=== PATIENT | female | born 1995 | race Caucasian/White ===

== ENCOUNTER 2021-08-11 09:26 | Emergency (ER) | payer SELFPAY ==
[2021-08-11] MEDS ORDERED: Acetaminophen 500 MG TAB ONE (09:58)
[2021-08-11] MEDS ORDERED: Sodium Chloride 0.9% 1,000 ML ONE (09:58)
[2021-08-11 10:08] LABS: Hemoglobin 12.6 g/dL (12.0-16.0); Mean Corpuscular HGB CONC 32.1 g/dL (32.0-36.0); Mean Corpuscular Hemoglobin 26.9 pg (27.0-31.0); Mean Corpuscular Volume 83.6 fL (78.0-98.0); Mean Platelet Volume 7.7 fL (7.4-10.4); Platelet Count 227 thou/uL (130-400); RBC Distribution Width 12.7 % (11.5-14.5); Red Blood Cell (RBC) Count 4.69 mill/uL (4.20-5.40); White Blood Cell (WBC) Count 20.9 thou/uL (4.8-10.8)
[2021-08-11] MEDS ORDERED: Ketorolac Tromethamine 30 MG/ML VIAL ONE (10:13)
[2021-08-11 10:21] LABS: ALT (SGPT) 18 U/L (8-55); AST (SGOT) 15 U/L (5-34); Albumin 4.1 g/dL (3.5-5.0); Alkaline Phosphatase 81 U/L (40-110); Anion Gap 15 mmol/L (10-20); BUN (Urea Nitrogen) 7 mg/dL (7.0-18.7); Bilirubin, Total 1.2 mg/dL (0.2-1.2); Calc. Creatinine Clearance 0 mL/min (70-130); Carbon Dioxide 21 mmol/L (22-29); Chloride 101 mmol/L (98-107); Globulin 3.3 g/dL (2.4-3.5); Glucose 123 mg/dL (70-105); Potassium 3.2 mmol/L (3.5-5.1); Protein, Total 7.4 g/dL (6.0-8.3); Sodium 134 mmol/L (136-145)
[2021-08-11 10:35] LABS: Band 3 % (5-11); Lymphocytes 6 % (21-51); MDiff Complete? YES; Manual Diff?? YES; Neutrophil 87 % (42-75)
[2021-08-11 10:36] LABS: Monocytes 4 % (0-10); Platelet Morphology Comment Appears Adequate; RBC Morphology Normal
[2021-08-11 10:46] LABS: Bilirubin Small (Negative); Blood, Urine Large (Negative); Clarity Slightly Cloudy (Clear); Glucose, Urine (Dipstick) Negative (Negative); Ketone, Urine Negative (Negative); Leukocyte Small (Negative); Nitrite Negative (Negative); Protein, Urine (Dipstick) 30 mg/dL (Neg-Trace); pH, Urine 5.5 (5.0-9.0)
[2021-08-11 10:48] LABS: Pregnancy Test - Urine (BHCG) Negative (Negative); Pregu Control Background? CLEAR/WHITE (CLR/WHITE); Pregu Control Bar Appear? YES (CONTROL BAR)
[2021-08-11 10:55] LABS: RBC/HPF Greater than 50 HPF (0-3)
[2021-08-11 10:56] LABS: Bacteria/HPF 1+ HPF (None Seen)
[2021-08-11] MEDS ORDERED: Sodium Chloride 0.9% 250 ML 250 ML ONE (11:23)
[2021-08-11] MEDS ORDERED: Azithromycin 500 MG VIAL ONE (11:23)
[2021-08-11] MEDS ORDERED: cefTRIAXone\\ROCEPHIN 2 GM VIAL ONE (11:23)
[2021-08-11] MEDS ORDERED: Sodium Chloride 0.9% 100 ML ONE (11:23)
[2021-08-11 11:28] LABS: SARS-CoV-2 NAA Rapid Test Not Detected (NotDetected)
== END 2021-08-11 12:42 | disposition critical access hospital (66) ==
LOC: NAV ERS 09:26
DX: J18.9 Pneumonia, unspecified organism (principal); J45.909 Unspecified asthma, uncomplicated; Z20.822 Contact with and (suspected) exposure to COVID-19
CPT/HCPCS: 71046; 80053; 81003; 81015; 81025; 83605; 84484; 85025; 87040; 93005; 94640; 96365; 96366; 96368; 96375; J0456; J0696; J1885; J3490; J7050; J7620

== ENCOUNTER 2021-08-11 12:00 | Inpatient (IN) | payer SELFPAY ==
[~2021-08-11 12:00] MED LIST: Ondansetron ODT 4 MG TAB SL PRN; Ondansetron PF 4 MG/2 ML Vial IVP PRN
[2021-08-11] MEDS ORDERED: Azithromycin 500 MG in Sodium Chloride 0.9% 250 ML 250 ML IVPB SCH (13:30)
[2021-08-11] MEDS: NS 0.9% w/ 20 MEQ KCL 1,000 ML IV SCH ×2 (14:44→21:19)
[2021-08-11 15:10] VITALS: BMI 39.4
[2021-08-11] MEDS: Acetaminophen 325 MG TAB PO PRN ×2 (17:20→21:19)
[2021-08-11] MEDS: Benzonatate 100 MG CAP PO PRN (17:52)
[2021-08-11] MEDS ORDERED: Acetaminophen 650 MG Suppository PR PRN (20:47)
[2021-08-11] MEDS ORDERED: Senokot S 8.6-50 MG TAB PO PRN (20:47)
[2021-08-11] MEDS ORDERED: Loperamide HCl 2 MG CAP PO PRN ×2 (20:47)
[2021-08-11] MEDS ORDERED: Calcium Carbonate 500 MG ChewTAB PO PRN (20:47)
[2021-08-11] MEDS ORDERED: Cepastat Lozenges 1 LOZ PO PRN (20:47)
[2021-08-11] MEDS ORDERED: Sodium Chloride 0.65% Nasal 44 ML BOT EA NARE PRN (20:47)
[2021-08-11] MEDS ORDERED: Promethazine HCl 25 MG SUPP PR PRN (20:47)
[2021-08-11] MEDS ORDERED: cefTRIAXone\\ROCEPHIN 1 GM in Sodium Chloride 0.9% 100 ML IVPB SCH (21:00)
[2021-08-12 06:32] LABS: ALT (SGPT) 22 U/L (8-55); AST (SGOT) 17 U/L (5-34); Albumin 3.5 g/dL (3.5-5.0); Alkaline Phosphatase 73 U/L (40-110); Anion Gap 13 mmol/L (10-20); BUN (Urea Nitrogen) 6 mg/dL (7.0-18.7); Bilirubin, Total 0.5 mg/dL (0.2-1.2); Calc. Creatinine Clearance 189 mL/min (70-130); Calcium 8.5 mg/dL (7.8-10.44); Chloride 109 mmol/L (98-107); Globulin 2.9 g/dL (2.4-3.5); Glucose 105 mg/dL (70-105); Potassium 3.8 mmol/L (3.5-5.1); Protein, Total 6.4 g/dL (6.0-8.3)
[2021-08-12 06:37] LABS: %Basophils 0.3 % (0.0-1.0); %Eosinophils 0.4 % (0.0-10.0); %Lymphocytes 15.1 % (21.0-51.0); %Monocytes 5.2 % (0.0-10.0); Hemoglobin 11.3 g/dL (12.0-16.0); Manual Diff?? NO; Mean Corpuscular HGB CONC 31.2 g/dL (32.0-36.0); Mean Corpuscular Hemoglobin 26.5 pg (27.0-31.0); Mean Corpuscular Volume 84.9 fL (78.0-98.0); Mean Platelet Volume 7.7 fL (7.4-10.4); Platelet Count 190 thou/uL (130-400); RBC Distribution Width 13.2 % (11.5-14.5); Red Blood Cell (RBC) Count 4.26 mill/uL (4.20-5.40); White Blood Cell (WBC) Count 10.8 thou/uL (4.8-10.8)
[2021-08-12 06:38] LABS: #Lymphocytes 1.6 thou/uL (1.20-3.40); #Monocytes 0.6 thou/uL (0.11-0.59); #Neutrophils 8.5 thou/uL (1.40-6.50)
[2021-08-12 06:43] LABS: Sodium 138 mmol/L (136-145)
[2021-08-12 06:44] LABS: Carbon Dioxide 20 mmol/L (22-29)
[2021-08-12] MEDS ORDERED: Acetaminophen 325 MG TAB PO PRN (07:48)
[2021-08-12] MEDS: Benzonatate 100 MG CAP PO PRN ×2 (08:21→13:53)
[2021-08-12 09:18] VITALS: TEMP 98.3
[2021-08-12 11:52] VITALS: BP 126/83
== END 2021-08-12 14:28 | disposition home or self-care (01) | DRG 871 ==
LOC: UNDOADMIN 12:48 → NAV ACUTE 12:48
PROVIDERS: ADMIT Family Medicine; ATTEND Family Medicine
DX: A41.9 Sepsis, unspecified organism (principal); J18.9 Pneumonia, unspecified organism; J45.21 Mild intermittent asthma with (acute) exacerbation; J45.909 Unspecified asthma, uncomplicated; Z87.891 Personal history of nicotine dependence
CPT/HCPCS: 36415; 80053; 85025; 94640; J1956; J3480; J7620